=== PATIENT | female | born 1940 | race Caucasian/White ===

== ENCOUNTER 2018-02-25 19:30 | Inpatient (IN) | payer OTHER ==
[~2018-02-25] VITALS: Ht 167.6 cm; Wt 50.7 kg
[~2018-02-25 19:30] MED LIST: ASPI81TA13 PO; CITA-77 PO; DOCU-94 PO; GLIP-116 PO; INSLANTI SC; LISI-275 PO; MULTCAP45 PO; OME20T PO; SIMV-8 PO; SITA100T7 PO
[2018-02-25 20:01] LABS: Basophils # (auto) 0.1 uL; Basophils % (auto) 0.7 % (0.0-2.0); Eosinophils # (auto) 0 uL; Eosinophils % (auto) 0.4 % (0.0-7.0); Hematocrit 30.2 % (36.0-46.0); Lymphocytes # (auto) 0.9 uL; Lymphocytes % (auto) 10.8 % (10.0-50.0); Mean Corpuscular Hgb Conc. 33.1 g/dL (32.0-36.0); Mean Corpuscular Volume 87.9 fL (80.0-100.0); Monocytes # (auto) 0.6 uL; Monocytes % (auto) 7.3 % (0.0-12.0); Neutrophils # (auto) 6.7 uL; Neutrophils % (auto) 80.8 % (37.0-80.0); Platelet Count (auto) 189 10^3/uL (140-450); Red Blood Cells 3.44 10^6/uL (4.0-5.20); Red Cell Distribution Width 14.3 % (11.8-14.3); White Blood Cell 8.3 10^3/uL (4.4-10.8)
[2018-02-25] MEDS ORDERED: ACETAMINOPHEN 650 mg PER 20 mL UD PO ONE (20:15)
[2018-02-25 20:19] LABS: INR 1.04 (0.9-1.15); Partial Thromboplastin Time 29.3 sec (23.78-33.04); Prothrombin Time 11.1 sec (9.27-12.13)
[2018-02-25] MEDS ORDERED: SODIUM CHLORIDE 0.9% 500 ML IVB ONE (20:21)
[2018-02-25 20:26] LABS: Albumin 2.5 g/dL (3.4-5.0); BUN/Creatinine Ratio 15.3; Bilirubin, Total 0.4 mg/dL (0.2-1.0); CRP High Sensitivity 7.82 mg/dL (< 0.3); Calcium 8.4 mg/dL (8.5-10.1); Magnesium 1.7 mg/dL (1.6-2.6); Potassium 3.6 mmol/L (3.5-5.1); Total Protein 9.1 g/dL (6.4-8.2)
[2018-02-25] MEDS ORDERED: ACETAMINOPHEN 650 MG RECT SUPP PR ONE (20:45)
[2018-02-25] MEDS ORDERED: ONDANSETRON HCL 4 MG/2 ML VIAL IV ONE (20:45)
[2018-02-25] MEDS ORDERED: ONDANSETRON HCL 4 MG/2 ML VIAL ONE (20:47)
[2018-02-25] MEDS ORDERED: PIPERACILLIN-TAZOB 3.375GM 100 ML IV ONE (21:00)
[2018-02-25] MEDS ORDERED: SODIUM CHLORIDE 0.9% 1,000 ML IV ONE (22:45)
[2018-02-25 23:27] LABS: Urine Bacteria FEW /hpf (None Seen); Urine Blood 1+ /uL (Negative); Urine Hyaline Cast FEW /lpf (0 - 2); Urine Specific Gravity 1.008 (1.001-1.035); Urine WBC 92 /hpf (0 - 5); Urine WBC Clumps PRESENT /hpf (None Seen)
[2018-02-26] MEDS ORDERED: DEXTROSE (50%) 50ML SYRG IV PRN (02:45)
[2018-02-26] MEDS ORDERED: VANCOMYCIN PER PHARMACY 0 MG IV SCH (02:45)
[2018-02-26] MEDS ORDERED: NITROGLYCERIN 0.4 MG SL TAB SL PRN (02:45)
[2018-02-26] MEDS ORDERED: MORPHINE SULF INJ 2 MG/ML SYRINGE 1ML IV PRN (02:45)
[2018-02-26] MEDS ORDERED: ACETAMINOPHEN 325 MG TAB PO PRN (02:45)
[2018-02-26] MEDS: SODIUM CHLORIDE 0.9% 1,000 ML IV SCH ×2 (03:19→14:35)
[2018-02-26] MEDS ORDERED: VANCOMYCIN 1GM/250ML 250 ML IV ONE (03:30)
[2018-02-26] MEDS: PIPERACILLIN-TAZOB 2.25GM 50 ML IV SCH ×3 (06:10→21:24)
[2018-02-26] MEDS: InsuLIN REG 1unit/0.01ml Soln (100units/ml) SC SCH ×4 (06:14→23:58)
[2018-02-26] MEDS: ACCU-CHEK COMFORT CURVE STRIP VI SCH ×4 (06:16→23:58)
[2018-02-26] MEDS: PANTOPRAZOLE 40 MG TAB PO SCH (08:07)
[2018-02-26] MEDS: ENOXAPARIN SOD 30 MG/0.3 ML SYRINGE SC SCH (08:10)
[2018-02-26 11:01] LABS: Albumin 1.9 g/dL (3.4-5.0); BUN/Creatinine Ratio 17.2; Bilirubin, Total 0.4 mg/dL (0.2-1.0); Calcium 7.5 mg/dL (8.5-10.1); Potassium 4.2 mmol/L (3.5-5.1)
[2018-02-26 15:20] VITALS: BP 119/56
[2018-02-26 15:26] VITALS: BP 119/56
[2018-02-26] MEDS: LEVOFLOXACIN 500MG 100 ML IV SCH (16:07)
[2018-02-26 17:24] VITALS: BP 129/54
[2018-02-26] MEDS: HYDROcodone-ACET 5/325MG TAB PO PRN (21:25)
[2018-02-26 22:00] VITALS: BP 159/74
[2018-02-27] MEDS: HYDROcodone-ACET 5/325MG TAB PO PRN (01:38)
[2018-02-27] MEDS: SODIUM CHLORIDE 0.9% 1,000 ML IV SCH ×2 (03:41→15:36)
[2018-02-27 05:35] VITALS: BP 134/61
[2018-02-27] MEDS: InsuLIN REG 1unit/0.01ml Soln (100units/ml) SC SCH ×3 (06:00→18:00)
[2018-02-27] MEDS: PIPERACILLIN-TAZOB 2.25GM 50 ML IV SCH ×3 (06:16→17:40)
[2018-02-27] MEDS: ACCU-CHEK COMFORT CURVE STRIP VI SCH ×3 (06:17→18:00)
[2018-02-27 06:37] LABS: Basophils # (auto) 0 uL; Eosinophils # (auto) 0.1 uL; Red Blood Cells 2.69 10^6/uL (4.0-5.20)
[2018-02-27 06:39] LABS: Basophils % (auto) 0.3 % (0.0-2.0); Hematocrit 23.4 % (36.0-46.0); Lymphocytes # (auto) 0.8 uL; Lymphocytes % (auto) 10.7 % (10.0-50.0); Mean Corpuscular Hemoglobin 29.9 pg (28.0-32.0); Mean Corpuscular Hgb Conc. 34.3 g/dL (32.0-36.0); Mean Corpuscular Volume 87.1 fL (80.0-100.0); Monocytes # (auto) 0.8 uL; Monocytes % (auto) 10.7 % (0.0-12.0); Neutrophils # (auto) 5.9 uL; Neutrophils % (auto) 77.3 % (37.0-80.0); Nucleated Red Blood Cells % 0.1 %; Platelet Count (auto) 147 10^3/uL (140-450); Red Cell Distribution Width 14.2 % (11.8-14.3); White Blood Cell 7.7 10^3/uL (4.4-10.8)
[2018-02-27] MEDS: PANTOPRAZOLE 40 MG TAB PO SCH (06:54)
[2018-02-27 07:13] LABS: Albumin 1.8 g/dL (3.4-5.0); BUN/Creatinine Ratio 15.7; Bilirubin, Total 0.2 mg/dL (0.2-1.0); Calcium 7.4 mg/dL (8.5-10.1); Potassium 3.6 mmol/L (3.5-5.1); Total Protein 6.9 g/dL (6.4-8.2)
[2018-02-27 08:50] VITALS: BP 140/67
[2018-02-27] MEDS: LEVOFLOXACIN 500MG 100 ML IV SCH (10:10)
[2018-02-27] MEDS: ENOXAPARIN SOD 30 MG/0.3 ML SYRINGE SC SCH (10:11)
[2018-02-27] MEDS ORDERED: ENOXAPARIN SOD 60 MG/0.6 ML SYRINGE SC ONE (11:45)
[2018-02-27 13:01] VITALS: BP 142/71
[2018-02-27 16:55] VITALS: BP 146/73
[2018-02-27] MEDS ORDERED: LABETALOL HCL 5 MG/ML ML 20ML VIAL IV PRN (19:00)
[2018-02-27 21:00] VITALS: BP 165/86
[2018-02-27] MEDS ORDERED: METOPROLOL TARTRATE 1MG/1ML-5ML VIAL IV ONE ×2 (21:22→21:30)
[2018-02-27] MEDS: ONDANSETRON HCL 4 MG/2 ML VIAL IV PRN (23:12)
[2018-02-28] VITALS (44 sets, daily range): BP systolic 72–148; BP diastolic 36–77
[2018-02-28] MEDS ORDERED: hydrALAZINE HCL 20 MG/ML VL IV PRN (01:00)
[2018-02-28] MEDS ORDERED: HEPARIN DRIP/D5W 100UNITS/ML 250 ML IV SCH (01:04)
[2018-02-28] MEDS ORDERED: AMIODARONE HCL 900 MG in DEXTROSE 500 ML IV SCH ×2 (01:04→07:04)
[2018-02-28] MEDS: ACCU-CHEK COMFORT CURVE STRIP VI SCH ×5 (01:25→23:42)
[2018-02-28] MEDS: InsuLIN REG 1unit/0.01ml Soln (100units/ml) SC SCH ×5 (01:25→23:42)
[2018-02-28] MEDS: PIPERACILLIN-TAZOB 2.25GM 50 ML IV SCH ×5 (01:26→23:38)
[2018-02-28 01:34] LABS: Basophils # (auto) 0 uL; Basophils % (auto) 0.1 % (0.0-2.0); Eosinophils # (auto) 0 uL; Hematocrit 26.7 % (36.0-46.0); Hemoglobin 8.6 g/dL (12.2-16.2); Lymphocytes # (auto) 0.4 uL; Lymphocytes % (auto) 5.6 % (10.0-50.0); Mean Corpuscular Hemoglobin 28.3 pg (28.0-32.0); Mean Corpuscular Hgb Conc. 32.1 g/dL (32.0-36.0); Monocytes # (auto) 0.6 uL; Neutrophils # (auto) 6.4 uL; Neutrophils % (auto) 86.3 % (37.0-80.0); Platelet Count (auto) 166 10^3/uL (140-450); Red Blood Cells 3.03 10^6/uL (4.0-5.20); Red Cell Distribution Width 14.2 % (11.8-14.3); White Blood Cell 7.4 10^3/uL (4.4-10.8)
[2018-02-28] MEDS ORDERED: AMIODARONE HCL 900 MG IV ONE (01:57)
[2018-02-28] MEDS ORDERED: AMIODARONE HCL (50 MG/ ML) 3 ML VIAL IV ONE (01:57)
[2018-02-28] MEDS ORDERED: NITROGLYCERIN 50MG/250ML 0 ML IV ONE (01:58)
[2018-02-28] MEDS ORDERED: AMIODARONE HCL 150 MG in D5W 5% 100 ML IV ONE (02:00)
[2018-02-28] MEDS ORDERED: METOPROLOL TARTRATE 50 MG TAB PO SCH (02:00)
[2018-02-28 02:09] LABS: BUN/Creatinine Ratio 14.6; Calcium 7.8 mg/dL (8.5-10.1); Potassium 4.4 mmol/L (3.5-5.1)
[2018-02-28] MEDS: SODIUM CHLORIDE 0.9% 1,000 ML IV SCH (02:58)
[2018-02-28] MEDS: ONDANSETRON HCL 4 MG/2 ML VIAL IV PRN ×2 (04:12→12:01)
[2018-02-28] MEDS: PANTOPRAZOLE 40 MG TAB PO SCH (07:30)
[2018-02-28] MEDS ORDERED: FUROSEMIDE 40 MG/4 ML VIAL IV ONE (10:15)
[2018-02-28] MEDS ORDERED: ASPirin 81 mg TAB PO ONE (10:15)
[2018-02-28] MEDS ORDERED: PANTOPRAZOLE 40 MG/10 ML VIAL IV ONE (10:15)
[2018-02-28] MEDS ORDERED: CLOPIDOGREL 300 MG TAB PO ONE (10:15)
[2018-02-28 11:16] LABS: Basophils # (auto) 0 uL; Basophils % (auto) 0.4 % (0.0-2.0); Eosinophils # (auto) 0 uL; Eosinophils % (auto) 0.2 % (0.0-7.0); Hematocrit 27.2 % (36.0-46.0); Hemoglobin 8.8 g/dL (12.2-16.2); Lymphocytes # (auto) 1.8 uL; Lymphocytes % (auto) 20.5 % (10.0-50.0); Mean Corpuscular Hemoglobin 28.7 pg (28.0-32.0); Mean Corpuscular Hgb Conc. 32.4 g/dL (32.0-36.0); Mean Corpuscular Volume 88.9 fL (80.0-100.0); Monocytes # (auto) 1.3 uL; Neutrophils # (auto) 5.6 uL; Neutrophils % (auto) 63.9 % (37.0-80.0); Nucleated Red Blood Cells % 0.1 %; Platelet Count (auto) 162 10^3/uL (140-450); Red Blood Cells 3.06 10^6/uL (4.0-5.20); Red Cell Distribution Width 14.4 % (11.8-14.3); White Blood Cell 8.7 10^3/uL (4.4-10.8)
[2018-02-28] MEDS: ENOXAPARIN SOD 60 MG/0.6 ML SYRINGE SC SCH (11:22)
[2018-02-28] MEDS: LEVOFLOXACIN 500MG 100 ML IV SCH (11:22)
[2018-02-28 11:34] LABS: Albumin 1.9 g/dL (3.4-5.0); BUN/Creatinine Ratio 14.9; Bilirubin, Total 0.5 mg/dL (0.2-1.0); Calcium 7.9 mg/dL (8.5-10.1); Potassium 4.2 mmol/L (3.5-5.1); Total Protein 7.6 g/dL (6.4-8.2)
[2018-02-28] MEDS: CITALOPRAM HYDROBR 20 MG TAB PO SCH (21:52)
[2018-02-28] MEDS: ATORVASTATIN 20 MG TAB PO SCH (21:53)
[2018-02-28] MEDS: HYDROcodone-ACET 5/325MG TAB PO PRN (22:00)
[2018-02-28] MEDS ORDERED: ATORVASTATIN 20 MG TAB PO SCH (22:00)
[2018-02-28] MEDS: ALPRAZolam 0.25 MG TAB PO PRN (23:42)
[2018-03-01] VITALS (22 sets, daily range): BP systolic 120–146; BP diastolic 35–81
[2018-03-01] MEDS: PIPERACILLIN-TAZOB 2.25GM 50 ML IV SCH ×3 (05:57→18:36)
[2018-03-01] MEDS: ACCU-CHEK COMFORT CURVE STRIP VI SCH ×3 (05:57→18:00)
[2018-03-01] MEDS: InsuLIN REG 1unit/0.01ml Soln (100units/ml) SC SCH ×3 (06:47→18:00)
[2018-03-01] MEDS: PANTOPRAZOLE 40 MG TAB PO SCH (07:30)
[2018-03-01] MEDS: PANTOPRAZOLE 40 MG/10 ML VIAL IV SCH (10:18)
[2018-03-01] MEDS: ENOXAPARIN SOD 60 MG/0.6 ML SYRINGE SC SCH (10:18)
[2018-03-01] MEDS: LEVOFLOXACIN 500MG 100 ML IV SCH (10:18)
[2018-03-01] MEDS: ASPirin 81 mg TAB PO SCH (10:18)
[2018-03-01] MEDS: CLOPIDOGREL BISULFATE 75 MG TAB PO SCH (10:18)
[2018-03-01] MEDS: Glucerna Carbsteady SHAKE Vanilla 8oz PO SCH (18:25)
[2018-03-01] MEDS: CITALOPRAM HYDROBR 20 MG TAB PO SCH (22:22)
[2018-03-01] MEDS: ALPRAZolam 0.25 MG TAB PO PRN (22:22)
[2018-03-01] MEDS: ATORVASTATIN 20 MG TAB PO SCH (22:22)
[2018-03-02] VITALS (10 sets, daily range): BP systolic 131–153; BP diastolic 60–74
[2018-03-02] MEDS: PIPERACILLIN-TAZOB 2.25GM 50 ML IV SCH ×5 (05:40→23:14)
[2018-03-02] MEDS: ACCU-CHEK COMFORT CURVE STRIP VI SCH ×5 (05:40→23:52)
[2018-03-02] MEDS: InsuLIN REG 1unit/0.01ml Soln (100units/ml) SC SCH ×5 (05:40→23:52)
[2018-03-02] MEDS: PANTOPRAZOLE 40 MG TAB PO SCH (08:53)
[2018-03-02] MEDS: Glucerna Carbsteady SHAKE Vanilla 8oz PO SCH ×3 (08:53→17:30)
[2018-03-02] MEDS: LEVOFLOXACIN 500MG 100 ML IV SCH (10:15)
[2018-03-02] MEDS: PANTOPRAZOLE 40 MG/10 ML VIAL IV SCH (10:16)
[2018-03-02] MEDS: ASPirin 81 mg TAB PO SCH (10:16)
[2018-03-02] MEDS: CLOPIDOGREL BISULFATE 75 MG TAB PO SCH (10:16)
[2018-03-02] MEDS: ENOXAPARIN SOD 60 MG/0.6 ML SYRINGE SC SCH (10:16)
[2018-03-02] MEDS: CITALOPRAM HYDROBR 20 MG TAB PO SCH (23:13)
[2018-03-02] MEDS: ALPRAZolam 0.25 MG TAB PO PRN (23:14)
[2018-03-02] MEDS: ATORVASTATIN 20 MG TAB PO SCH (23:14)
[2018-03-03] MEDS: HYDROcodone-ACET 5/325MG TAB PO PRN (00:45)
[2018-03-03 04:53] VITALS: BP 144/76
[2018-03-03] MEDS: ACCU-CHEK COMFORT CURVE STRIP VI SCH ×2 (06:00→12:26)
[2018-03-03] MEDS: InsuLIN REG 1unit/0.01ml Soln (100units/ml) SC SCH ×2 (06:00→12:26)
[2018-03-03] MEDS: PIPERACILLIN-TAZOB 2.25GM 50 ML IV SCH ×2 (06:00→12:15)
[2018-03-03] MEDS: PANTOPRAZOLE 40 MG TAB PO SCH (07:30)
[2018-03-03] MEDS: Glucerna Carbsteady SHAKE Vanilla 8oz PO SCH ×2 (08:19→12:07)
[2018-03-03 09:00] VITALS: BP 155/75
[2018-03-03] MEDS: LEVOFLOXACIN 500MG 100 ML IV SCH (10:05)
[2018-03-03] MEDS: ENOXAPARIN SOD 60 MG/0.6 ML SYRINGE SC SCH (10:05)
[2018-03-03] MEDS: PANTOPRAZOLE 40 MG/10 ML VIAL IV SCH (10:05)
[2018-03-03] MEDS: CLOPIDOGREL BISULFATE 75 MG TAB PO SCH (10:05)
[2018-03-03] MEDS: ASPirin 81 mg TAB PO SCH (10:05)
[2018-03-03 12:24] VITALS: BP 148/70
[2018-03-03 12:41] VITALS: BP 148/70
[2018-03-03 12:53] LABS: Hematocrit 26.2 % (36.0-46.0); Hemoglobin 8.6 g/dL (12.2-16.2); Mean Corpuscular Hgb Conc. 32.8 g/dL (32.0-36.0); Mean Corpuscular Volume 88.6 fL (80.0-100.0); Platelet Count (auto) 178 10^3/uL (140-450); Red Blood Cells 2.96 10^6/uL (4.0-5.20); Red Cell Distribution Width 14.6 % (11.8-14.3)
[2018-03-03 12:55] LABS: Basophils % (manual) 0 (0.0-2.0); Blast Cells 0; Myelocytes % 0; Promyelocytes % 0; Reactive Lymphocytes 0
[2018-03-03 12:57] LABS: BUN/Creatinine Ratio 11.9; Calcium 7.5 mg/dL (8.5-10.1); Potassium 3.6 mmol/L (3.5-5.1)
[2018-03-03 14:09] LABS: Band Neutrophils % (manual) 3; Lymphocytes % (manual) 13 (10.0-50.0)
[2018-03-03 14:10] LABS: Eosinophils % (manual) 3 (0-7); Metamyelocytes % 2; Monocytes % (manual) 15 (0-12)
[2018-03-15] MEDS ORDERED: LEVO500T21 PO (11:27)
[2018-03-15] MEDS ORDERED: FURO40TA PO (11:27)
== END 2018-03-03 13:47 | disposition home health service (06) | DRG 871 ==
LOC: EDBD 19:30 → ER 19:30 → TELE 19:31 → TELE-EAST 02-26 15:09 → ICU WEST 02-28 02:26 → DOU IN ICU 03-02 07:55 → CENTRAL 03-02 21:00 → TELE-CENTR 03-03 02:30
PROVIDERS: ADMIT Nurse Practitioner; ATTEND Internal Medicine
DX: A41.9 Sepsis, unspecified organism (principal); G93.41 Metabolic encephalopathy; I21.4 Non-ST elevation (NSTEMI) myocardial infarction; E87.1 Hypo-osmolality and hyponatremia; E44.1 Mild protein-calorie malnutrition; Z68.1 Body mass index [BMI] 19.9 or less, adult; N13.6 Pyonephrosis; I12.9 Hypertensive chronic kidney disease with stage 1 through stage 4 chronic kidney disease, or unspecified chronic kidney disease; N18.3 Chronic kidney disease, stage 3 (moderate); Z66 Do not resuscitate; D64.9 Anemia, unspecified; E11.22 Type 2 diabetes mellitus with diabetic chronic kidney disease; E78.5 Hyperlipidemia, unspecified; E86.0 Dehydration; F02.80 Dementia in other diseases classified elsewhere, unspecified severity, without behavioral disturbance, psychotic disturbance, mood disturbance, and anxiety; F41.9 Anxiety disorder, unspecified; G30.9 Alzheimer's disease, unspecified; I25.10 Atherosclerotic heart disease of native coronary artery without angina pectoris; I70.0 Atherosclerosis of aorta; K29.60 Other gastritis without bleeding; M19.90 Unspecified osteoarthritis, unspecified site; M43.16 Spondylolisthesis, lumbar region; M48.061 Spinal stenosis, lumbar region without neurogenic claudication; Z79.84 Long term (current) use of oral hypoglycemic drugs; Z79.899 Other long term (current) drug therapy; Z79.4 Long term (current) use of insulin
CPT/HCPCS: 36415; 36600; 51702; 70450; 71045; 74176; 80048; 80053; 80320; 81001; 82140; 82150; 82805; 82962; 83605; 83690; 83735; 83880; 84484; 85007; 85025; 85027; 85610; 85730; 86141; 87040; 87077; 87081; 87086; 87088; 87186; 87493; 93005; 93306; 94761; 96365; 96366; 96367; 96375; 97163; 99291; C9113; J1815; J1956; J2405; J2543; J7060

== ENCOUNTER 2019-11-02 04:10 | Inpatient (IN) | payer OTHER ==
[2019-11-02] VITALS (13 sets, daily range): BP systolic 105–157; BP diastolic 47–79
[~2019-11-02] VITALS: Ht 162.6 cm; Wt 51.0 kg
[~2019-11-02 04:10] MED LIST changes: +ASPI1TAB19 PO; -ASPI81TA13 PO; +FURO1TAB31 PO; -GLIP-116 PO; +GLIP10TA9 PO; +LEVO500T21 PO
[2019-11-02 05:28] LABS: Basophils # (auto) 0 10 ^3/uL (0-0.2); Eosinophils # (auto) 0 10 ^3/uL (0-0.8); Lymphocytes # (auto) 0.8 10 ^3/uL (0.4-5.4); Monocytes # (auto) 0.8 10 ^3/uL (0-1.3); Neutrophils % (auto) 76.6 % (37.0-80.0); Red Blood Cells 2.32 10^6/uL (4.0-5.20)
[2019-11-02 05:30] LABS: Basophils % (auto) 0.3 % (0.0-2.0); Eosinophils % (auto) 0.1 % (0.0-7.0); Hematocrit 21.9 % (36.0-46.0); Hemoglobin 7.4 g/dL (12.2-16.2); Lymphocytes % (auto) 11.9 % (10.0-50.0); Mean Corpuscular Hemoglobin 31.8 pg (28.0-32.0); Mean Corpuscular Hgb Conc. 33.7 g/dL (32.0-36.0); Mean Corpuscular Volume 94.2 fL (80.0-100.0); Monocytes % (auto) 11.1 % (0.0-12.0); Neutrophils # (auto) 5.4 10 ^3/uL (1.6-8.6); Platelet Count (auto) 104 10^3/uL (140-450); Red Cell Distribution Width 13.8 % (11.8-14.3); White Blood Cell 7.1 10^3/uL (4.4-10.8)
[2019-11-02 05:36] LABS: Urine Amorphous Crystal MOD /hpf (None Seen); Urine Bacteria MOD /hpf (None Seen); Urine Blood TRACE /uL (Negative); Urine Hyaline Cast MOD /lpf (0 - 2); Urine Specific Gravity 1.015 (1.001-1.035); Urine WBC 296 /hpf (0 - 5); Urine WBC Clumps PRESENT /hpf (None Seen)
[2019-11-02 05:43] LABS: Albumin 3.1 g/dL (3.4-5.0); Calcium 7.9 mg/dL (8.5-10.1)
[2019-11-02 05:44] LABS: INR 1.09 (0.9-1.15); Partial Thromboplastin Time 28.8 sec (23.64-32.05)
[2019-11-02 05:49] LABS: BUN/Creatinine Ratio 23.5; Bilirubin, Total 0.4 mg/dL (0.2-1.0); Total Protein 8.5 g/dL (6.4-8.2)
[2019-11-02] MEDS ORDERED: CALCIUM GLUC 4.65meq/50ml D5AE 50 ML IV ONE (06:15)
[2019-11-02] MEDS ORDERED: DEXTROSE (50%) 50ML SYRG IV ONE (06:15)
[2019-11-02] MEDS ORDERED: InsuLIN REG 1unit/0.01ml Soln (100units/ml) IV ONE (06:15)
[2019-11-02] MEDS ORDERED: SODIUM BICARBONATE 8.4 % INJ 50ML VIAL IV ONE (06:15)
[2019-11-02] MEDS ORDERED: NITROGLYCERIN 0.4 MG SL TAB SL PRN (06:45)
[2019-11-02] MEDS ORDERED: ONDANSETRON HCL 4 MG/2 ML VIAL IV PRN (06:45)
[2019-11-02] MEDS ORDERED: SODIUM CHLORIDE 0.9% 500 ML IV ONE (06:45)
[2019-11-02] MEDS ORDERED: ACETAMINOPHEN 325 MG TAB PO PRN (06:45)
[2019-11-02] MEDS ORDERED: DEXTROSE (50%) 50ML SYRG IV PRN (06:45)
[2019-11-02] MEDS ORDERED: MORPHINE SULF INJ 2 MG/ML SYRINGE 1ML IV PRN (06:45)
[2019-11-02] MEDS ORDERED: SODIUM ZIRCONIUM CYCL 10 GM PAK PO ONE (06:45)
[2019-11-02] MEDS ORDERED: TEMAZEPAM 15 MG CAP PO PRN (06:45)
[2019-11-02] MEDS ORDERED: SODIUM CHLORIDE 0.9% 1,000 ML IV SCH (06:45)
[2019-11-02] MEDS: ACCU-CHEK COMFORT CURVE STRIP VI SCH ×4 (07:50→21:21)
[2019-11-02] MEDS: InsuLIN REG 1unit/0.01ml Soln (100units/ml) SC SCH ×4 (07:51→21:22)
[2019-11-02 08:05] LABS: BUN/Creatinine Ratio 23.8; Calcium 8.6 mg/dL (8.5-10.1); Potassium 5.2 mmol/L (3.5-5.1)
[2019-11-02] MEDS: SODIUM CHLORIDE 0.9% 1,000 ML IV SCH (08:14)
[2019-11-02] MEDS ORDERED: LISINOPRIL 20 MG TAB PO SCH (10:00)
[2019-11-02] MEDS ORDERED: FUROSEMIDE 40 MG TAB PO SCH (10:00)
[2019-11-02] MEDS ORDERED: PANTOPRAZOLE 40 MG TAB PO SCH (10:00)
[2019-11-02] MEDS: cefTRIAXone 1GM/50ML D5W 50 ML IV SCH (10:13)
[2019-11-02 18:15] LABS: Calcium 8.2 mg/dL (8.5-10.1); Potassium 4.8 mmol/L (3.5-5.1)
[2019-11-02 18:19] LABS: BUN/Creatinine Ratio 23.4
[2019-11-02] MEDS ORDERED: ALPRAZolam 0.25 MG TAB PO PRN (18:30)
[2019-11-02] MEDS: CITALOPRAM HYDROBR 20 MG TAB PO SCH (18:57)
[2019-11-02] MEDS ORDERED: ATORVASTATIN 20 MG TAB PO SCH (22:00)
[2019-11-03] MEDS: SODIUM CHLORIDE 0.9% 1,000 ML IV SCH (00:30)
[2019-11-03 05:00] VITALS: BP 143/67
[2019-11-03 05:31] LABS: Basophils # (auto) 0 10 ^3/uL (0-0.2); Basophils % (auto) 0.3 % (0.0-2.0); Eosinophils # (auto) 0 10 ^3/uL (0-0.8); Eosinophils % (auto) 0.1 % (0.0-7.0); Hematocrit 27.1 % (36.0-46.0); Hemoglobin 9.4 g/dL (12.2-16.2); Lymphocytes # (auto) 1.4 10 ^3/uL (0.4-5.4); Lymphocytes % (auto) 21.6 % (10.0-50.0); Mean Corpuscular Hemoglobin 31.3 pg (28.0-32.0); Mean Corpuscular Hgb Conc. 34.7 g/dL (32.0-36.0); Mean Corpuscular Volume 90.2 fL (80.0-100.0); Monocytes % (auto) 14.7 % (0.0-12.0); Neutrophils # (auto) 4.1 10 ^3/uL (1.6-8.6); Neutrophils % (auto) 63.3 % (37.0-80.0); Platelet Count (auto) 107 10^3/uL (140-450); Red Blood Cells 3.01 10^6/uL (4.0-5.20); Red Cell Distribution Width 14.7 % (11.8-14.3); White Blood Cell 6.5 10^3/uL (4.4-10.8)
[2019-11-03 05:55] LABS: Calcium 8.1 mg/dL (8.5-10.1); Potassium 4.6 mmol/L (3.5-5.1)
[2019-11-03 06:00] LABS: BUN/Creatinine Ratio 23.8; Bilirubin, Total 0.6 mg/dL (0.2-1.0); Phosphorus 4.1 mg/dL (2.5-4.90); Total Protein 8.1 g/dL (6.4-8.2); Uric Acid 7.8 mg/dL (2.6-6.0)
[2019-11-03] MEDS: ACCU-CHEK COMFORT CURVE STRIP VI SCH ×2 (06:48→11:30)
[2019-11-03] MEDS: InsuLIN REG 1unit/0.01ml Soln (100units/ml) SC SCH ×2 (06:48→11:30)
[2019-11-03 08:00] VITALS: BP 122/61
[2019-11-03 08:45] VITALS: BP 122/61
[2019-11-03] MEDS: CITALOPRAM HYDROBR 20 MG TAB PO SCH (09:28)
[2019-11-03] MEDS: cefTRIAXone 1GM/50ML D5W 50 ML IV SCH (09:29)
[2019-11-03] MEDS ORDERED: MULTIPLE VITAMINS W/ MINERALS TAB PO SCH (10:00)
[2019-11-03] MEDS ORDERED: LISINOPRIL 5 MG TAB PO SCH (10:00)
[2019-11-03] MEDS ORDERED: ASPirin 81 mg TAB PO SCH (10:00)
[2019-11-03] MEDS ORDERED: PANTOPRAZOLE 40 MG TAB PO SCH (10:00)
[2019-11-03 12:44] VITALS: BP 158/62
[2019-11-03] MEDS ORDERED: CIPR-173 PO (13:14)
[2019-11-03 15:04] VITALS: BP 138/54
== END 2019-11-03 16:00 | disposition home health service (06) | DRG 683 ==
LOC: EDBD 04:10 → ER 04:10 → TELE 04:11 → TELE-CENTR 08:51
PROVIDERS: ADMIT Nurse Practitioner; ATTEND Hospitalist
DX: N17.9 Acute kidney failure, unspecified (principal); N39.0 Urinary tract infection, site not specified; E44.0 Moderate protein-calorie malnutrition; E87.5 Hyperkalemia; D64.9 Anemia, unspecified; F03.90 Unspecified dementia, unspecified severity, without behavioral disturbance, psychotic disturbance, mood disturbance, and anxiety; I25.10 Atherosclerotic heart disease of native coronary artery without angina pectoris; F32.9 Major depressive disorder, single episode, unspecified; E78.5 Hyperlipidemia, unspecified; N18.3 Chronic kidney disease, stage 3 (moderate); I12.9 Hypertensive chronic kidney disease with stage 1 through stage 4 chronic kidney disease, or unspecified chronic kidney disease; Z82.49 Family history of ischemic heart disease and other diseases of the circulatory system; Z79.899 Other long term (current) drug therapy; Z88.8 Allergy status to other drugs, medicaments and biological substances; Z79.4 Long term (current) use of insulin; Z83.3 Family history of diabetes mellitus; Z79.82 Long term (current) use of aspirin
CPT/HCPCS: 36415; 70450; 71045; 76775; 80048; 80053; 81001; 82962; 83605; 83880; 84100; 84443; 84484; 84550; 85025; 85610; 85730; 86850; 86900; 86901; 86920; 87040; 87086; 87088; 87186; 93005; 96361; 96365; 96375; 97163; G0378; J0610; J0696; J1815

== ENCOUNTER 2020-03-08 06:28 | Inpatient (IN) | payer OTHER ==
[~2020-03-08] VITALS: Ht 160 cm; Wt 51.7 kg
[~2020-03-08 06:28] MED LIST changes: +CIPR-173 PO; -GLIP10TA9 PO; -LEVO500T21 PO; -LISI-275 PO
[2020-03-08 07:59] LABS: Basophils # (auto) 0 10 ^3/uL (0-0.2); Basophils % (auto) 0.6 % (0.0-2.0); Eosinophils # (auto) 0 10 ^3/uL (0-0.8); Eosinophils % (auto) 0.3 % (0.0-7.0); Hematocrit 28.3 % (36.0-46.0); Hemoglobin 9.6 g/dL (12.2-16.2); Lymphocytes # (auto) 1.2 10 ^3/uL (0.4-5.4); Lymphocytes % (auto) 29.1 % (10.0-50.0); Mean Corpuscular Hemoglobin 31.4 pg (28.0-32.0); Mean Corpuscular Volume 92.2 fL (80.0-100.0); Monocytes # (auto) 0.7 10 ^3/uL (0-1.3); Monocytes % (auto) 16.5 % (0.0-12.0); Neutrophils # (auto) 2.3 10 ^3/uL (1.6-8.6); Neutrophils % (auto) 53.5 % (37.0-80.0); Platelet Count (auto) 106 10^3/uL (140-450); Red Blood Cells 3.07 10^6/uL (4.0-5.20); Red Cell Distribution Width 13.5 % (11.8-14.3); White Blood Cell 4.3 10^3/uL (4.4-10.8)
[2020-03-08 08:17] LABS: Alanine Aminotransferase 15 U/L (13-56); Albumin 3.3 g/dL (3.4-5.0); Anion Gap 7 (5-15); Aspartate Aminotransferase 17 U/L (15-37); BUN/Creatinine Ratio 14.8; Blood Urea Nitrogen 34 mg/dL (7-18); Carbon Dioxide 25 mmol/L (21-32); Chloride 97 mmol/L (98-107); GFR African American 26 mL/min; GFR Non-African American 22 mL/min; Glucose 174 mg/dL (74-106); Potassium 3.9 mmol/L (3.5-5.1); Sodium 129 mmol/L (136-145)
[2020-03-08 08:22] LABS: Alkaline Phosphatase 90 U/L (45-117); Bilirubin, Total 0.4 mg/dL (0.2-1.0); Total Protein 8.6 g/dL (6.4-8.2)
[2020-03-08] MEDS ORDERED: NITROGLYCERIN 0.4 MG SL TAB SL ONE (08:45)
[2020-03-08] MEDS ORDERED: ALPRAZolam 0.25 MG TAB PO ONE (08:45)
[2020-03-08 12:16] LABS: Urine Bacteria MOD /hpf (None Seen); Urine Blood TRACE /uL (Negative); Urine Hyaline Cast FEW /lpf (0 - 2); Urine WBC 168 /hpf (0 - 5); Urine WBC Clumps PRESENT /hpf (None Seen)
[2020-03-08] MEDS: SODIUM CHLORIDE 0.9% 1,000 ML IV SCH (15:34)
[2020-03-08] MEDS ORDERED: cefTRIAXone 1GM/50ML D5W 50 ML IV ONE (15:45)
[2020-03-08] MEDS ORDERED: NITROGLYCERIN 0.4 MG SL TAB SL PRN (15:45)
[2020-03-08] MEDS ORDERED: ACETAMINOPHEN 500 MG TAB PO PRN (15:45)
[2020-03-08] MEDS ORDERED: MORPHINE SULF INJ 2 MG/ML SYRINGE 1ML IV PRN (15:45)
[2020-03-08] MEDS ORDERED: DEXTROSE (50%) 50ML SYRG IV PRN (15:45)
[2020-03-08] MEDS ORDERED: ONDANSETRON HCL 4 MG/2 ML VIAL IV PRN (15:45)
[2020-03-08] MEDS: InsuLIN REG 1unit/0.01ml Soln (100units/ml) SC SCH ×2 (17:00→22:25)
[2020-03-08] MEDS: ACCU-CHEK COMFORT CURVE STRIP VI SCH ×2 (17:24→22:23)
--- NOTE | 2020-03-08 19:21 | NUR ---
PT ARRIVED TO FLOOR FROM ER APROX. 1800. DENIES PAIN. REPORT PASSED ON TO [employer] [facility].
[2020-03-08 22:00] VITALS: BP 143/72
[2020-03-08] MEDS: FAMOTIDINE 20 MG TAB PO SCH (22:23)
[2020-03-09] MEDS: SODIUM CHLORIDE 0.9% 1,000 ML IV SCH ×2 (01:34→09:12)
[2020-03-09 05:00] VITALS: BP 171/58
[2020-03-09 06:00] LABS: Basophils # (auto) 0 10 ^3/uL (0-0.2); Basophils % (auto) 0.5 % (0.0-2.0); Eosinophils # (auto) 0 10 ^3/uL (0-0.8); Eosinophils % (auto) 0.2 % (0.0-7.0); Hematocrit 29.2 % (36.0-46.0); Lymphocytes # (auto) 1.3 10 ^3/uL (0.4-5.4); Lymphocytes % (auto) 31.8 % (10.0-50.0); Mean Corpuscular Hemoglobin 31.4 pg (28.0-32.0); Mean Corpuscular Hgb Conc. 34.3 g/dL (32.0-36.0); Mean Corpuscular Volume 91.4 fL (80.0-100.0); Monocytes # (auto) 0.8 10 ^3/uL (0-1.3); Neutrophils # (auto) 2.1 10 ^3/uL (1.6-8.6); Neutrophils % (auto) 49.5 % (37.0-80.0); Platelet Count (auto) 117 10^3/uL (140-450); Red Cell Distribution Width 13.8 % (11.8-14.3); White Blood Cell 4.2 10^3/uL (4.4-10.8)
[2020-03-09 06:22] LABS: Potassium 3.5 mmol/L (3.5-5.1)
[2020-03-09] MEDS: ACCU-CHEK COMFORT CURVE STRIP VI SCH ×3 (06:29→16:35)
[2020-03-09 06:30] LABS: Albumin 3.4 g/dL (3.4-5.0); BUN/Creatinine Ratio 13.5; Bilirubin, Total 0.5 mg/dL (0.2-1.0); Calcium 8.7 mg/dL (8.5-10.1); Total Protein 8.5 g/dL (6.4-8.2)
[2020-03-09] MEDS: InsuLIN REG 1unit/0.01ml Soln (100units/ml) SC SCH ×3 (06:30→16:36)
[2020-03-09] MEDS ORDERED: cefTRIAXone 1GM/50ML D5W 50 ML IV SCH (09:00)
[2020-03-09] MEDS: FAMOTIDINE 20 MG TAB PO SCH (09:14)
[2020-03-09 09:20] VITALS: BP 166/64
--- NOTE | 2020-03-09 11:55 | NUR ---
WOUND CARE NOTE: WOUND CARE IN TO SEE PATIENT PER WOUND CARE REQUEST. PATIENT ADMITTED TO [facility], UTI WITH ENCEPHALOPATHY. BEDSIDE NURSE NOTED SKIN INTEGRITY ISSUE UPON ADMISSION. PHOTOGRAPH TAKEN AT THAT TIME. PATIENT SILKE SCORE IS 14. PATIENT NOTED TO HAVE A STAGE 2 PRESSURE INJURY TO THE SACRUM THAT MEASURES 1.2x0.5cm. CLEANSED WITH NORMAL SALINE, PATTED DRY WITH STERILE GAUZE, ZGUARD APPLIED, COVERED WITH OPTIFOAM GENTLE SACRAL DRESSING. RECOMMEND: FREQUENT Q2HOUR REPOSITIONING CONDITION PERMITS. REDISTRIBUTE PRESSURE UTILIZING PILLOWS AND WEDGES. BID/PRN DRESSING CHANGE. SKIN/WOUND CARE PLAN. CONTINUED MONITORING BY WOUND CARE TEAM. Addendum: 03/09/20 at 1548 by RSOA SAAB RN RN Amended: Links added.
[2020-03-09 12:48] VITALS: BP 171/67
--- NOTE | 2020-03-09 13:26 | NUR ---
PT SLEEPING ALL MORNING, STATES, " I DONT SLEEP WELL AT NIGHT. I JUST NEED TO SLEEP." EASILY AROUSABLE. DENIES PAIN. BLOOD SUGAR 86. VSS. MONITORING CLOSELY.
[2020-03-09] MEDS ORDERED: DOCUSATE SOD 100 MG CAP PO PRN (15:45)
[2020-03-09] MEDS ORDERED: SULF400T11 PO (16:14)
[2020-03-09] MEDS ORDERED: AML5T PO (16:14)
[2020-03-09] MEDS ORDERED: SULFAMETHOX W/TRIMETH(800/160MG) DS TAB PO SCH (16:15)
--- NOTE | 2020-03-09 16:25 | NUR ---
PT AT BEDSIDE. RECOMMENDING HOME HEALTH FOR PT.
[2020-03-09] MEDS ORDERED: hydrALAZINE HCL 20 MG/ML VL IV ONE (16:30)
[2020-03-09] MEDS ORDERED: amLODIPine BESYLATE 5 MG TAB PO ONE (16:30)
[2020-03-09] MEDS ORDERED: LABETALOL HCL 5 MG/ML 4ML SYRINGE IV ONE (16:45)
[2020-03-09 16:51] VITALS: BP 167/87
--- NOTE | 2020-03-09 17:51 | NUR ---
SS consult for [facility] for safety eval and PT upon discharge. [place] [employer] technician counter caser Krunal requesting information be faxed to [facility] for f/u. Contacted [facility] ( [phone]) and faxed clinical information. Agency to followup with pt 24-48 hours post discharge.
[2020-03-09 18:04] VITALS: BP 151/46
[2020-03-09] MEDS ORDERED: ATORVASTATIN 20 MG TAB PO SCH (22:00)
[2020-03-09] MEDS ORDERED: metroNIDAZOLE 500 MG TAB PO SCH (22:00)
[2020-03-10] MEDS ORDERED: CITALOPRAM HYDROBR 20 MG TAB PO SCH (10:00)
[2020-03-10] MEDS ORDERED: levoFLOXacin 250 MG TAB PO SCH (10:00)
[2020-03-10] MEDS ORDERED: PANTOPRAZOLE 40 MG TAB PO SCH (10:00)
[2020-03-10] MEDS ORDERED: MULTIPLE VITAMIN TAB PO SCH (10:00)
[2020-03-10] MEDS ORDERED: amLODIPine BESYLATE 5 MG TAB PO SCH (10:00)
[2020-03-10] MEDS ORDERED: ASPirin-EC 81 mg tab PO SCH (10:00)
[2020-03-10] MEDS ORDERED: FUROSEMIDE 40 MG TAB PO SCH (10:00)
== END 2020-03-09 18:53 | disposition home health service (06) | DRG 70 ==
LOC: ER 06:28 → EDBD 06:28 → TELE 06:29 → TELE-WESTW 18:07
PROVIDERS: ADMIT Internal Medicine; ATTEND Internal Medicine
DX: G93.41 Metabolic encephalopathy (principal); N17.0 Acute kidney failure with tubular necrosis; N39.0 Urinary tract infection, site not specified; E87.1 Hypo-osmolality and hyponatremia; D61.818 Other pancytopenia; N18.4 Chronic kidney disease, stage 4 (severe); E86.0 Dehydration; D63.1 Anemia in chronic kidney disease; F03.90 Unspecified dementia, unspecified severity, without behavioral disturbance, psychotic disturbance, mood disturbance, and anxiety; E11.21 Type 2 diabetes mellitus with diabetic nephropathy; E11.22 Type 2 diabetes mellitus with diabetic chronic kidney disease; E78.5 Hyperlipidemia, unspecified; F32.9 Major depressive disorder, single episode, unspecified; I12.9 Hypertensive chronic kidney disease with stage 1 through stage 4 chronic kidney disease, or unspecified chronic kidney disease; I25.10 Atherosclerotic heart disease of native coronary artery without angina pectoris; K21.9 Gastro-esophageal reflux disease without esophagitis; Z82.49 Family history of ischemic heart disease and other diseases of the circulatory system; Z83.3 Family history of diabetes mellitus; E11.65 Type 2 diabetes mellitus with hyperglycemia; L89.322 Pressure ulcer of left buttock, stage 2
CPT/HCPCS: 36415; 51702; 71045; 76775; 80053; 81001; 82962; 83036; 83880; 84484; 85025; 87086; 87088; 87186; 93005; G0378; J0696; J1815; J3490

== ENCOUNTER 2021-03-12 11:43 | Inpatient (IN) | payer OTHER ==
[~2021-03-12] VITALS: Ht 157.5 cm; Wt 44.0 kg
[2021-03-12] MEDS: InsuLIN REG 1unit/0.01ml Soln (100units/ml) SC SCH (00:32)
[2021-03-12] MEDS: ACCU-CHEK COMFORT CURVE STRIP VI SCH (00:33)
[~2021-03-12 11:43] MED LIST changes: +AML5T PO; -CIPR-173 PO; +SULF400T11 PO
[2021-03-12] MEDS ORDERED: SODIUM CHLORIDE 0.9% 1,000 ML IV ONE (12:00)
[2021-03-12 12:10] LABS: Basophils # (auto) 0.1 10 ^3/uL (0-0.2); Basophils % (auto) 1.2 % (0.0-2.0); Eosinophils # (auto) 0 10 ^3/uL (0-0.8); Eosinophils % (auto) 0.1 % (0.0-7.0); Hematocrit 28.5 % (36.0-46.0); Hemoglobin 9.7 g/dL (12.2-16.2); Lymphocytes # (auto) 0.9 10 ^3/uL (0.4-5.4); Lymphocytes % (auto) 14.6 % (10.0-50.0); Mean Corpuscular Hemoglobin 30.6 pg (28.0-32.0); Monocytes # (auto) 0.6 10 ^3/uL (0-1.3); Monocytes % (auto) 9.5 % (0.0-12.0); Neutrophils # (auto) 4.4 10 ^3/uL (1.6-8.6); Neutrophils % (auto) 74.6 % (37.0-80.0); Nucleated Red Blood Cells % 0.1 %; Red Blood Cells 3.17 10^6/uL (4.0-5.20); Red Cell Distribution Width 14.9 % (11.8-14.3)
[2021-03-12 12:28] LABS: Albumin 2.8 g/dL (3.4-5.0); Anion Gap 8 (5-15); Blood Urea Nitrogen 31 mg/dL (7-18); Calcium 9.3 mg/dL (8.5-10.1); Carbon Dioxide 22 mmol/L (21-32); Chloride 105 mmol/L (98-107); Glucose 183 mg/dL (74-106); Potassium 3.7 mmol/L (3.5-5.1); Sodium 135 mmol/L (136-145)
[2021-03-12 12:34] LABS: Alanine Aminotransferase 15 U/L (13-56); Alkaline Phosphatase 78 U/L (45-117); Aspartate Aminotransferase 21 U/L (15-37); Bilirubin, Total 0.6 mg/dL (0.2-1.0); GFR African American 30 mL/min; GFR Non-African American 25 mL/min; Total Protein 8.8 g/dL (6.4-8.2)
[2021-03-12 17:38] LABS: Urine Bacteria FEW /hpf (None Seen); Urine Blood TRACE /uL (Negative); Urine Mucus FEW (None Seen); Urine Specific Gravity 1.014 (1.001-1.035); Urine WBC 2 /hpf (0 - 5)
[2021-03-12] MEDS ORDERED: cefTRIAXone 1GM/50ML D5W 50 ML IV ONE (17:45)
[2021-03-12] MEDS ORDERED: NITROGLYCERIN 0.4 MG SL TAB SL PRN (19:15)
[2021-03-12] MEDS ORDERED: MORPHINE SULFATE INJECTION 2 MG/ML SYRG IV PRN (19:15)
[2021-03-12] MEDS ORDERED: DEXTROSE (50%) 50ML SYRG IV PRN (19:45)
[2021-03-13] VITALS (7 sets, daily range): BP systolic 100–153; BP diastolic 56–67
[2021-03-13] MEDS: SODIUM CHLORIDE 0.9% 1,000 ML IV SCH ×2 (00:32→07:20)
[2021-03-13] MEDS ORDERED: CARV3.1240 PO (01:19)
[2021-03-13] MEDS ORDERED: FER325T PO (01:19)
[2021-03-13] MEDS ORDERED: CHOL200021 PO (01:19)
[2021-03-13] MEDS ORDERED: POTA20IN4 IV (01:19)
[2021-03-13] MEDS ORDERED: RANO500T3 PO (01:19)
[2021-03-13] MEDS: ACCU-CHEK COMFORT CURVE STRIP VI SCH ×4 (07:00→22:19)
[2021-03-13] MEDS: InsuLIN REG 1unit/0.01ml Soln (100units/ml) SC SCH ×4 (07:00→22:00)
[2021-03-13] MEDS: ASPirin-EC 81 mg tab PO SCH ×2 (09:32→09:38)
[2021-03-13] MEDS: DOCUSATE SOD 100 MG CAP PO SCH ×2 (09:32→09:38)
[2021-03-13] MEDS: PANTOPRAZOLE 40 MG TAB PO SCH ×2 (09:32→09:38)
[2021-03-13] MEDS: cefTRIAXone 1GM/50ML D5W 50 ML IV SCH (09:32)
[2021-03-13] MEDS: ENOXAPARIN SOD 30 MG/0.3 ML SYRINGE SC SCH ×2 (09:33→09:38)
[2021-03-13 12:39] LABS: BUN/Creatinine Ratio 17.3; Calcium 8.5 mg/dL (8.5-10.1)
[2021-03-13] MEDS ORDERED: hydrALAZINE HCL 20 MG/ML VL IV PRN (12:45)
[2021-03-13] MEDS ORDERED: POTASSIUM CHL 20MEQ/100ML 100 ML IV ONE (16:00)
[2021-03-13] MEDS: FERROUS SULFATE 325mg EC TAB PO SCH (18:00)
[2021-03-13] MEDS ORDERED: LORazepam 2MG/ML-1ML VIAL IV PRN (20:30)
[2021-03-13 22:14] LABS: Folate (Folic Acid) 16.58 ng/mL (5.38-24)
[2021-03-13] MEDS: ATORVASTATIN 20 MG TAB PO SCH (22:19)
[2021-03-13] MEDS: CARVEDILOL 3.125 MG TAB PO SCH (22:19)
[2021-03-14 05:00] VITALS: BP 125/60
[2021-03-14 05:57] LABS: Basophils # (auto) 0 10 ^3/uL (0-0.2); Eosinophils # (auto) 0 10 ^3/uL (0-0.8); Eosinophils % (auto) 0.6 % (0.0-7.0); Hematocrit 29.7 % (36.0-46.0); Hemoglobin 10.2 g/dL (12.2-16.2); Lymphocytes # (auto) 0.9 10 ^3/uL (0.4-5.4); Lymphocytes % (auto) 20.7 % (10.0-50.0); Mean Corpuscular Hemoglobin 31.4 pg (28.0-32.0); Mean Corpuscular Hgb Conc. 34.2 g/dL (32.0-36.0); Mean Corpuscular Volume 91.8 fL (80.0-100.0); Monocytes # (auto) 0.5 10 ^3/uL (0-1.3); Monocytes % (auto) 10.7 % (0.0-12.0); Nucleated Red Blood Cells % 0.1 %; Red Blood Cells 3.23 10^6/uL (4.0-5.20); Red Cell Distribution Width 14.7 % (11.8-14.3); White Blood Cell 4.5 10^3/uL (4.4-10.8)
[2021-03-14] MEDS: InsuLIN REG 1unit/0.01ml Soln (100units/ml) SC SCH ×4 (06:11→22:00)
[2021-03-14] MEDS: ACCU-CHEK COMFORT CURVE STRIP VI SCH ×4 (06:11→22:00)
[2021-03-14 06:23] LABS: Potassium 3.5 mmol/L (3.5-5.1)
[2021-03-14 06:30] LABS: BUN/Creatinine Ratio 13.8; Calcium 8.7 mg/dL (8.5-10.1)
[2021-03-14] MEDS: FERROUS SULFATE 325mg EC TAB PO SCH ×2 (08:00→18:00)
[2021-03-14 08:53] VITALS: BP 136/52
[2021-03-14] MEDS: cefTRIAXone 1GM/50ML D5W 50 ML IV SCH (09:00)
[2021-03-14] MEDS: Sitagliptin Phosphate (Januvia) 100 MG TAB PO SCH (10:00)
[2021-03-14] MEDS: DOCUSATE SOD 100 MG CAP PO SCH (10:02)
[2021-03-14] MEDS: CITALOPRAM HYDROBR 20 MG TAB PO SCH (10:02)
[2021-03-14] MEDS: CARVEDILOL 3.125 MG TAB PO SCH ×2 (10:03→22:17)
[2021-03-14] MEDS: ASPirin-EC 81 mg tab PO SCH (10:03)
[2021-03-14] MEDS: MULTIPLE VITAMIN TAB PO SCH (10:03)
[2021-03-14] MEDS: ENOXAPARIN SOD 30 MG/0.3 ML SYRINGE SC SCH (10:04)
[2021-03-14] MEDS: PANTOPRAZOLE 40 MG TAB PO SCH (10:04)
[2021-03-14] MEDS: amLODIPine BESYLATE 5 MG TAB PO SCH (10:04)
[2021-03-14 13:00] VITALS: BP 129/53
[2021-03-14 17:12] VITALS: BP 112/56
[2021-03-14] MEDS ORDERED: CYANOCOBALAMIN (B-12) 1000 MCG/1 ML VIAL IM ONE (21:15)
[2021-03-14 21:57] VITALS: BP 138/64
[2021-03-14] MEDS: ATORVASTATIN 20 MG TAB PO SCH (22:17)
[2021-03-15 05:00] VITALS: BP 131/48
[2021-03-15] MEDS: ACCU-CHEK COMFORT CURVE STRIP VI SCH ×2 (06:00→14:24)
[2021-03-15] MEDS: InsuLIN REG 1unit/0.01ml Soln (100units/ml) SC SCH ×2 (06:00→11:30)
[2021-03-15 09:00] VITALS: BP 136/59
[2021-03-15] MEDS: cefTRIAXone 1GM/50ML D5W 50 ML IV SCH (09:00)
[2021-03-15] MEDS: CITALOPRAM HYDROBR 20 MG TAB PO SCH (09:10)
[2021-03-15] MEDS: ASPirin-EC 81 mg tab PO SCH (09:10)
[2021-03-15] MEDS: MULTIPLE VITAMIN TAB PO SCH (09:10)
[2021-03-15] MEDS: FERROUS SULFATE 325mg EC TAB PO SCH (09:10)
[2021-03-15] MEDS: CARVEDILOL 3.125 MG TAB PO SCH (09:10)
[2021-03-15] MEDS: PANTOPRAZOLE 40 MG TAB PO SCH (09:11)
[2021-03-15] MEDS: amLODIPine BESYLATE 5 MG TAB PO SCH (09:11)
[2021-03-15] MEDS: ENOXAPARIN SOD 30 MG/0.3 ML SYRINGE SC SCH (09:17)
[2021-03-15] MEDS: DOCUSATE SOD 100 MG CAP PO SCH (09:18)
[2021-03-15 10:00] LABS: BUN/Creatinine Ratio 12.9; Calcium 8.8 mg/dL (8.5-10.1); Magnesium 1.8 mg/dL (1.6-2.6); Phosphorus 2.8 mg/dL (2.5-4.90)
[2021-03-15] MEDS: Sitagliptin Phosphate (Januvia) 100 MG TAB PO SCH (10:00)
[2021-03-15] MEDS ORDERED: POTASSIUM CHL 20 Meq TABLET PO ONE (12:15)
[2021-03-15 13:00] VITALS: BP 123/56
[2021-03-15] MEDS ORDERED: CYANOCOBALAMIN 500 MCG TAB PO SCH (22:00)
== END 2021-03-15 16:50 | disposition home health service (06) | DRG 71 ==
LOC: EDBD 11:43 → ER 11:43 → TELE 19:02 → TELE-WESTW 23:31
PROVIDERS: ADMIT Nurse Practitioner Acute Care; ATTEND Internal Medicine
DX: G93.41 Metabolic encephalopathy (principal); N17.9 Acute kidney failure, unspecified; N39.0 Urinary tract infection, site not specified; E44.0 Moderate protein-calorie malnutrition; N18.4 Chronic kidney disease, stage 4 (severe); Z68.1 Body mass index [BMI] 19.9 or less, adult; E11.9 Type 2 diabetes mellitus without complications; G30.9 Alzheimer's disease, unspecified; E78.5 Hyperlipidemia, unspecified; I12.9 Hypertensive chronic kidney disease with stage 1 through stage 4 chronic kidney disease, or unspecified chronic kidney disease; E11.22 Type 2 diabetes mellitus with diabetic chronic kidney disease; E87.6 Hypokalemia; Z20.822 Contact with and (suspected) exposure to COVID-19; F02.80 Dementia in other diseases classified elsewhere, unspecified severity, without behavioral disturbance, psychotic disturbance, mood disturbance, and anxiety; F32.9 Major depressive disorder, single episode, unspecified; I25.10 Atherosclerotic heart disease of native coronary artery without angina pectoris; Z79.4 Long term (current) use of insulin; Z88.8 Allergy status to other drugs, medicaments and biological substances; Z79.82 Long term (current) use of aspirin; Z79.899 Other long term (current) drug therapy; Z82.3 Family history of stroke; Z82.49 Family history of ischemic heart disease and other diseases of the circulatory system; Z83.3 Family history of diabetes mellitus; Z86.73 Personal history of transient ischemic attack (TIA), and cerebral infarction without residual deficits
CPT/HCPCS: 36415; 70450; 70551; 71045; 80048; 80053; 81001; 82607; 82746; 82962; 83735; 84100; 84443; 84484; 85025; 87040; 87086; 87426; 93005; 96361; 96365; 96372; 97163; G0378; J0696; J1815; J3480

== ENCOUNTER 2021-06-02 20:49 | Inpatient (IN) | payer OTHER ==
[~2021-06-02] VITALS: Ht 165.1 cm; Wt 63.5 kg
[~2021-06-02 20:49] MED LIST changes: +CARV3.1240 PO; +CHOL200021 PO; +FER325T PO; +POTA20IN4 IV; +RANO500T3 PO
[2021-06-02 22:39] LABS: Basophils # (auto) 0 10 ^3/uL (0-0.2); Basophils % (auto) 0.4 % (0.0-2.0); Eosinophils # (auto) 0 10 ^3/uL (0-0.8); Hematocrit 28.8 % (36.0-46.0); Hemoglobin 9.6 g/dL (12.2-16.2); Lymphocytes # (auto) 0.9 10 ^3/uL (0.4-5.4); Lymphocytes % (auto) 8.4 % (10.0-50.0); Mean Corpuscular Hemoglobin 30.2 pg (28.0-32.0); Mean Corpuscular Hgb Conc. 33.3 g/dL (32.0-36.0); Mean Corpuscular Volume 90.6 fL (80.0-100.0); Monocytes # (auto) 0.8 10 ^3/uL (0-1.3); Monocytes % (auto) 6.9 % (0.0-12.0); Neutrophils # (auto) 9.3 10 ^3/uL (1.6-8.6); Neutrophils % (auto) 84.3 % (37.0-80.0); Red Blood Cells 3.18 10^6/uL (4.0-5.20); Red Cell Distribution Width 14.7 % (11.8-14.3); White Blood Cell 11.1 10^3/uL (4.4-10.8)
[2021-06-02 23:08] LABS: INR 1.08 (0.9-1.15); Partial Thromboplastin Time 24.3 sec (23.6-33.0)
[2021-06-02 23:10] LABS: Potassium 3.7 mmol/L (3.5-5.1)
[2021-06-02 23:23] LABS: Albumin 2.9 g/dL (3.4-5.0); BUN/Creatinine Ratio 16.3; Bilirubin, Total 0.7 mg/dL (0.2-1.0); Calcium 9.3 mg/dL (8.5-10.1); Total Protein 9.7 g/dL (6.4-8.2)
[2021-06-03] MEDS ORDERED: ACETAMINOPHEN 650 MG RECT SUPP PR ONE (03:00)
[2021-06-03] MEDS ORDERED: cefTRIAXone 1GM/50ML D5W 50 ML IV ONE (04:00)
[2021-06-03 04:22] LABS: Urine Bacteria FEW /hpf (None Seen); Urine Blood TRACE /uL (Negative); Urine Hyaline Cast FEW /lpf (0 - 2); Urine WBC 9 /hpf (0 - 5); Urine WBC Clumps PRESENT /hpf (None Seen)
[2021-06-03] MEDS ORDERED: SODIUM CHLORIDE 0.9% 500 ML IV ONE (05:15)
[2021-06-03] MEDS ORDERED: DEXTROSE (50%) 50ML SYRG IV PRN (06:45)
[2021-06-03] MEDS ORDERED: ACETAMINOPHEN 325 MG TAB PO PRN (06:45)
[2021-06-03] MEDS ORDERED: ONDANSETRON HCL 4 MG/2 ML VIAL IV PRN (06:45)
[2021-06-03] MEDS: ACCU-CHEK COMFORT CURVE STRIP VI SCH ×4 (07:00→22:00)
[2021-06-03] MEDS: InsuLIN REG 1unit/0.01ml Soln (100units/ml) SC SCH ×4 (07:00→22:00)
[2021-06-03] MEDS: SODIUM CHLORIDE 0.9% 1,000 ML IV SCH ×2 (07:02→20:52)
[2021-06-03] MEDS: PANTOPRAZOLE 40 MG TAB PO SCH (10:00)
[2021-06-03] MEDS: RANOLAZINE ER 500 MG TAB PO SCH ×2 (10:30→22:46)
[2021-06-03] MEDS: ATORVASTATIN 20 MG TAB PO SCH (22:00)
[2021-06-04] MEDS: InsuLIN REG 1unit/0.01ml Soln (100units/ml) SC SCH ×4 (07:00→22:00)
[2021-06-04] MEDS: ACCU-CHEK COMFORT CURVE STRIP VI SCH ×4 (07:00→22:04)
[2021-06-04] MEDS: cefTRIAXone 1GM/50ML D5W 50 ML IV SCH (08:01)
[2021-06-04 08:37] LABS: Basophils # (auto) 0 10 ^3/uL (0-0.2); Basophils % (auto) 0.3 % (0.0-2.0); Eosinophils # (auto) 0 10 ^3/uL (0-0.8); Eosinophils % (auto) 0.1 % (0.0-7.0); Hemoglobin 8.7 g/dL (12.2-16.2); Lymphocytes # (auto) 1.2 10 ^3/uL (0.4-5.4); Lymphocytes % (auto) 8.6 % (10.0-50.0); Mean Corpuscular Hemoglobin 30.4 pg (28.0-32.0); Mean Corpuscular Hgb Conc. 33.3 g/dL (32.0-36.0); Mean Corpuscular Volume 91.2 fL (80.0-100.0); Monocytes # (auto) 1.1 10 ^3/uL (0-1.3); Neutrophils # (auto) 11.4 10 ^3/uL (1.6-8.6); Nucleated Red Blood Cells % 0.1 %; Red Blood Cells 2.85 10^6/uL (4.0-5.20); Red Cell Distribution Width 14.8 % (11.8-14.3); White Blood Cell 13.7 10^3/uL (4.4-10.8)
[2021-06-04 08:55] LABS: BUN/Creatinine Ratio 20.7; Calcium 8.2 mg/dL (8.5-10.1)
[2021-06-04] MEDS: SODIUM CHLORIDE 0.9% 1,000 ML IV SCH ×2 (09:25→22:04)
[2021-06-04] MEDS: ENOXAPARIN SOD 30 MG/0.3 ML SYRINGE SC SCH (09:36)
[2021-06-04] MEDS: PANTOPRAZOLE 40 MG TAB PO SCH (09:50)
[2021-06-04] MEDS: RANOLAZINE ER 500 MG TAB PO SCH ×2 (09:50→21:50)
[2021-06-04 10:18] LABS: Potassium 2.7 mmol/L (3.5-5.1)
[2021-06-04] MEDS: POTASSIUM CHL 20MEQ/100ML 100 ML IV SCH ×3 (14:05→17:52)
[2021-06-04] MEDS ORDERED: levoFLOXacin 500 MG TAB PO ONE (15:45)
[2021-06-04 21:10] VITALS: BP 129/69
[2021-06-04] MEDS: ATORVASTATIN 20 MG TAB PO SCH (21:50)
[2021-06-05 05:00] VITALS: BP 122/62
[2021-06-05] MEDS: InsuLIN REG 1unit/0.01ml Soln (100units/ml) SC SCH ×3 (05:15→17:00)
[2021-06-05] MEDS: ACCU-CHEK COMFORT CURVE STRIP VI SCH ×3 (05:15→18:09)
[2021-06-05 06:48] LABS: Basophils # (auto) 0 10 ^3/uL (0-0.2); Eosinophils # (auto) 0 10 ^3/uL (0-0.8); Lymphocytes # (auto) 0.8 10 ^3/uL (0.4-5.4); Monocytes # (auto) 0.5 10 ^3/uL (0-1.3); White Blood Cell 6.6 10^3/uL (4.4-10.8)
[2021-06-05 06:51] LABS: Basophils % (auto) 0.5 % (0.0-2.0); Eosinophils % (auto) 0.1 % (0.0-7.0); Hematocrit 21.1 % (36.0-46.0); Hemoglobin 7.1 g/dL (12.2-16.2); Lymphocytes % (auto) 12.8 % (10.0-50.0); Mean Corpuscular Hemoglobin 30.9 pg (28.0-32.0); Mean Corpuscular Hgb Conc. 33.7 g/dL (32.0-36.0); Mean Corpuscular Volume 91.4 fL (80.0-100.0); Monocytes % (auto) 7.4 % (0.0-12.0); Neutrophils # (auto) 5.2 10 ^3/uL (1.6-8.6); Neutrophils % (auto) 79.2 % (37.0-80.0); Nucleated Red Blood Cells % 0.2 %; Red Blood Cells 2.31 10^6/uL (4.0-5.20); Red Cell Distribution Width 14.6 % (11.8-14.3)
[2021-06-05 07:07] LABS: Calcium 7.3 mg/dL (8.5-10.1); Potassium 3.8 mmol/L (3.5-5.1)
[2021-06-05 07:09] LABS: BUN/Creatinine Ratio 22.9
[2021-06-05] MEDS: cefTRIAXone 1GM/50ML D5W 50 ML IV SCH (09:10)
[2021-06-05] MEDS: RANOLAZINE ER 500 MG TAB PO SCH (09:15)
[2021-06-05] MEDS: PANTOPRAZOLE 40 MG TAB PO SCH (09:15)
[2021-06-05] MEDS: ENOXAPARIN SOD 30 MG/0.3 ML SYRINGE SC SCH (09:16)
[2021-06-05] MEDS ORDERED: SULFAMETHOX W/TRIMETH(800/160MG) DS TAB PO SCH (11:45)
[2021-06-05] MEDS: SODIUM CHLORIDE 0.9% 1,000 ML IV SCH (12:03)
[2021-06-05 12:35] VITALS: BP 104/57
[2021-06-05] MEDS: LORazepam 2MG/ML-1ML VIAL IV PRN ×2 (15:04→15:22)
[2021-06-05] MEDS ORDERED: LORazepam 2MG/ML-1ML VIAL IV PRN (15:15)
[2021-06-05 17:00] VITALS: BP 120/64
[2021-06-05] MEDS ORDERED: SULFAMETHOX W/TRIMETH(800/160MG) DS TAB PO ONE (18:30)
[2021-06-05 18:36] VITALS: BP 120/64
[2021-06-07] MEDS ORDERED: SULF400T11 PO (18:17)
== END 2021-06-05 19:40 | disposition home health service (06) | DRG 871 ==
LOC: EDBD 20:49 → ER 20:51 → OVERFLOW 06-03 06:37 → TELE-CENTR 06-04 20:30
PROVIDERS: ADMIT Nurse Practitioner; ATTEND Internal Medicine
DX: A41.9 Sepsis, unspecified organism (principal); G93.41 Metabolic encephalopathy; E43 Unspecified severe protein-calorie malnutrition; N39.0 Urinary tract infection, site not specified; N17.9 Acute kidney failure, unspecified; J98.11 Atelectasis; J84.9 Interstitial pulmonary disease, unspecified; E78.5 Hyperlipidemia, unspecified; F03.90 Unspecified dementia, unspecified severity, without behavioral disturbance, psychotic disturbance, mood disturbance, and anxiety; I25.10 Atherosclerotic heart disease of native coronary artery without angina pectoris; E87.6 Hypokalemia; E11.22 Type 2 diabetes mellitus with diabetic chronic kidney disease; I12.9 Hypertensive chronic kidney disease with stage 1 through stage 4 chronic kidney disease, or unspecified chronic kidney disease; F32.A Depression, unspecified; K21.9 Gastro-esophageal reflux disease without esophagitis; N18.32 Chronic kidney disease, stage 3b; Z20.822 Contact with and (suspected) exposure to COVID-19; Z79.4 Long term (current) use of insulin; Z79.82 Long term (current) use of aspirin; Z79.84 Long term (current) use of oral hypoglycemic drugs; Z79.899 Other long term (current) drug therapy; Z82.3 Family history of stroke; Z82.49 Family history of ischemic heart disease and other diseases of the circulatory system; Z83.3 Family history of diabetes mellitus; Z87.440 Personal history of urinary (tract) infections; Z88.1 Allergy status to other antibiotic agents; Z68.23 Body mass index [BMI] 23.0-23.9, adult
CPT/HCPCS: 36415; 70450; 71045; 71250; 80048; 80053; 81001; 82962; 83605; 83735; 84155; 84165; 85025; 85610; 85730; 87040; 87086; 87088; 87186; 87426; 93306; 96361; 96365; 97162; G0378; J0696; J1815; J3480